=== PATIENT | male | born 1995 | race Caucasian/White ===

== ENCOUNTER 2023-10-13 14:58 | Day surgery (SDC) | payer OTHER ==
[2023-10-13] MEDS ORDERED: BUPIVACAINE 0.5% VIAL IJ ONE (14:59)
[2023-10-13] MEDS ORDERED: XYLOCAINE-MPF 1% 5ML SDV IJ ONE (14:59)
[2023-10-13] MEDS ORDERED: Depo-Medrol 40 MG/ML IM ONE (14:59)
[2023-10-13] MEDS ORDERED: Decadron 4 MG INJ IV ONE (14:59)
--- NOTE | 2023-10-13 20:55 | XRAY ---
Indication: Right SI joint and right piriformis injection. Intraoperative fluoroscopy provided for 19 seconds. 3 digital spot images submitted for interpretation demonstrates posterior needle tip projecting overwrite SI joint. Additional posterior needle tip projects over right piriformis with small amount of contrast injected for needle tip placement. Correlate with intraoperative findings/report.
--- NOTE | 2023-10-14 09:18 | XRAY ---
19 seconds of fluoroscopy was used in surgery for a right sacroiliac joint and right piriformis injection.
== END 2023-10-13 18:09 | disposition home or self-care (01) ==
LOC: SDC-PAIN 14:58
PROVIDERS: ATTEND Psychiatry & Neurology Pain Medicine
DX: M46.1 Sacroiliitis, not elsewhere classified (principal); M79.18 Myalgia, other site
CPT/HCPCS: 20552; 27096; 72170; 77002; J1030; J1100; Q9966; G0260